=== PATIENT | female | born 1940 | race Caucasian/White ===

== ENCOUNTER 2017-05-20 09:57 | Inpatient (IN) | payer MEDICARE, OTHER ==
[~2017-05-20] VITALS: Ht 147.3 cm; Wt 64.4 kg
--- NOTE | 2017-05-20 10:10 | NUR ---
ROGELIO 89 FROM HOME FOR COUGH WITH CONGESTION X 1 WEEK. VSS. AWAITING FOR MD. SAFETY AND COMFORT MEASURES PROVIDED. WILL MONITOR.
--- NOTE | 2017-05-20 10:35 | NUR ---
AT [facility]
--- NOTE | 2017-05-20 10:50 | NUR ---
IV ACCESS STARTED. BLOOD DRAWN FOR LABS. PT MEDICATED ORDERED.
[2017-05-20 10:52] LABS: BASOPHILS # (AUTO) 0.2 /CMM (0.0-0.2); BASOPHILS % (AUTO) 1.5 % (0.0-2.0); EOSINOPHILS % (AUTO) 0.4 % (0.0-6.0); HEMATOCRIT 42 % (33-45); HEMOGLOBIN 14.1 g/dL (11.5-14.8); LYMPHOCYTES # (AUTO) 0.7 /CMM (0.8-4.8); LYMPHOCYTES % (AUTO) 6.1 % (20.0-44.0); MEAN CORPUSCULAR HEMOGLOBIN 31 PG (26.0-33.0); MEAN CORPUSCULAR HGB CONC 34 g/dl (31.0-36.0); MEAN CORPUSCULAR VOLUME 91 fL (82-100); MONOCYTES # (AUTO) 0.3 /CMM (0.1-1.30); MONOCYTES % (AUTO) 2.5 % (2.0-12.0); NEUTROPHILS # (AUTO) 10.9 /CMM (1.8-8.9); NEUTROPHILS % (AUTO) 89.5 % (43.0-81.0); PLATELET COUNT (AUTO) 173 /CMM (150-450); RDW COEFFICIENT OF VARIATION 13.2 (11.5-15.0); RED BLOOD CELL COUNT(AUTO) 4.61 MIL/uL (4.0-5.2); WHITE BLOOD COUNT (AUTO) 12.1 K/uL (4.3-11.0)
[2017-05-20 11:00] LABS: CALCIUM, SERUM 8.7 mg/dL (8.5-10.1); CARBON DIOXIDE 27 mmol/L (21-32); CHLORIDE 100 mmol/L (98-107); CREATININE 0.8 mg/dL (0.6-1.3); GLUCOSE 123 mg/dL (74-106); POTASSIUM 4.2 mmol/L (3.5-5.1); SODIUM SERUM 135 mmol/L (136-145); UREA NITROGEN, BLOOD 13 mg/dL (7-18)
--- NOTE | 2017-05-20 11:00 | NUR ---
RT AT BS FOR BREATHING TX.
[2017-05-20 11:13] LABS: ALANINE AMINOTRANSFERASE 36 U/L (12-78); ALBUMIN 3.6 g/dL (3.4-5.0); ALKALINE PHOSPHATASE 53 U/L (46-116); ASPARTATE AMINOTRANSFERASE 26 U/L (15-37); B-TYPE NATRIURETIC PEPTIDE 133 PG/ML (0-125); BILIRUBIN,DIRECT 0.1 mg/dL (0.0-0.2); BILIRUBIN,TOTAL 0.4 mg/dL (0.2-1.0); TOTAL PROTEIN, SERUM 6.8 g/dL (6.4-8.2)
--- NOTE | 2017-05-20 11:45 | NUR ---
[phone] DR BERNIE HOLGUIN.
--- NOTE | 2017-05-20 14:12 | NUR ---
COURTNEY CALLED ITS [facility]
[2017-05-20] MEDS ORDERED: IBUP200C5 PO (14:14)
[2017-05-20] MEDS ORDERED: ASPI81TA2 PO (14:14)
--- NOTE | 2017-05-20 15:29 | NUR ---
REPORT GIVEN TO ADRIENNE SEN FOR NOHEMY TELE [phone]
[2017-05-20 16:00] VITALS: BP 110/61
--- NOTE | 2017-05-20 16:30 | NUR ---
RESORT MANAGER NOTES RECEIVED PATIENT FROM ER. PT TRANSFERRED FROM [facility] TO BED. ROOM SET UP AND PATIENT ORIENTED. PT CONNECTED TO MONITOR NORMAL SINUS RHYTHM RATE 91. NO COMPLAINTS OF PAIN OR SOB. PT ON 2L 02 NASAL CANNULA. PT MADE AWARE THAT CALL CALL LIGHT WITHIN REACH.
--- NOTE | 2017-05-20 18:36 | NUR ---
REVENUE OFFICER CLOSING NOTES PATIENT CONTINUED MONITORING. NO SOB OR COMPLAINTS OF PAIN. PLAN OF CARE VERBALIZED TO PT. PT ON 2L O2. PATIENT SATING AT 94. REMINDED PT THAT CALL LIGHT IS WITHIN REACH.
[2017-05-20 20:00] VITALS: BP 116/64
--- NOTE | 2017-05-21 06:16 | NUR ---
pt alert, oriented ,ambulatory ,denies any pain, coughing dry, non productive, given x2 doses of tessalon naomi overnight, kept oxygen 2 liters with spo2 94%.slept well good 4 hrs after ambien, voiding ,no bm. will continue with steroid and antibiotics.vss,afebrile.
[2017-05-21 06:31] LABS: HEMATOCRIT 38 % (33-45); HEMOGLOBIN 12.7 g/dL (11.5-14.8); LYMPHOCYTES # (AUTO) 0.6 /CMM (0.8-4.8); LYMPHOCYTES % (AUTO) 3.4 % (20.0-44.0); MEAN CORPUSCULAR HEMOGLOBIN 31 PG (26.0-33.0); MEAN CORPUSCULAR HGB CONC 34 g/dl (31.0-36.0); MEAN CORPUSCULAR VOLUME 93 fL (82-100); MONOCYTES # (AUTO) 0.1 /CMM (0.1-1.30); MONOCYTES % (AUTO) 0.6 % (2.0-12.0); NEUTROPHILS # (AUTO) 15.8 /CMM (1.8-8.9); PLATELET COUNT (AUTO) 161 /CMM (150-450); RDW COEFFICIENT OF VARIATION 13.9 (11.5-15.0); RED BLOOD CELL COUNT(AUTO) 4.07 MIL/uL (4.0-5.2); WHITE BLOOD COUNT (AUTO) 16.5 K/uL (4.3-11.0)
[2017-05-21 06:36] LABS: CALCIUM, SERUM 8.5 mg/dL (8.5-10.1); CARBON DIOXIDE 22 mmol/L (21-32); CHLORIDE 105 mmol/L (98-107); CREATININE 0.8 mg/dL (0.6-1.3); GLUCOSE 161 mg/dL (74-106); MAGNESIUM 1.9 mg/dL (1.8-2.4); PHOSPHORUS 3.1 mg/dL (2.5-4.9); POTASSIUM 3.9 mmol/L (3.5-5.1); SODIUM SERUM 138 mmol/L (136-145); UREA NITROGEN, BLOOD 15 mg/dL (7-18)
--- NOTE | 2017-05-21 07:45 | NUR ---
MS/RN OPENING NOTE PATIENT RECEIVED IN BED IN STABLE CONDITION. ALERT AND ORIENTED TIMES 4. NO SIGNS OF ACUTE DISTRESS. NO COMPLAIN OF PAIN OR DISCOMFORT. ALL NEEDS ATTENDED TO. CALL LIGHT WITHIN REACH. WILL CONTINUE TO MONITOR TO ENSURE SAFETY.
[2017-05-21 08:00] VITALS: BP 116/64
--- NOTE | 2017-05-21 09:37 | NUR ---
MS/RN SEEN BY DR CHAPA PATIENT SEEN BY DR CHAPA WITH NO NEW ORDERS.
--- NOTE | 2017-05-21 18:40 | NUR ---
MS/RN CLOSING NOTE PATIENT IN BED IN STABLE CONDITION. A/O X 4. NO SINGS OF ACUTE DISTRESS. NO COMPLAIN OF PAIN OR DISCOMFORT. ALL NEEDS ATTENDED TO. CALL LIGHT WITHIN REACH. WILL ENDORSE TO NEXT SHIFT FOR CONTINUITY OF CARE.
--- NOTE | 2017-05-21 21:23 | NUR ---
MS/RN NOTES Patient on bed, alert et oriented. Respiration even et unlabored. Vital signs stable, Ambien 5 mg po given per request by patient. Fall precautions rendered. call light within reach. will continue to monitoe.
--- NOTE | 2017-05-21 22:39 | NUR ---
ms/rn notes patient complained of headache, medicated with tyklenol as needed. will cont. to monitor
--- NOTE | 2017-05-21 23:50 | NUR ---
ms/rn notes patient complained of cough, medicated with thesalon naomi as needed. will cont. to monitor
[2017-05-22 08:00] VITALS: BP 137/78
--- NOTE | 2017-05-22 08:00 | NUR ---
MS/RN AM NOTES PATIENT IN BED IN STABLE CONDITION. A/O X 4. NO SINGS OF ACUTE DISTRESS. NO COMPLAIN OF PAIN OR DISCOMFORT. ALL NEEDS ATTENDED TO. CALL LIGHT WITHIN REACH.
[2017-05-22] MEDS ORDERED: LEVO500T15 PO (13:32)
[2017-05-22] MEDS ORDERED: PRED50TA PO (13:32)
--- NOTE | 2017-05-22 14:44 | NUR ---
DISCHARGED INSTRUCTIONS,MED RECONCILIATION,MED AND HEALTH TEACHING GIVEN TO THE PT.IV H/L TO RFA REMOVED WITHOUT BLEEDING NOTED AND PT TOLERATED WELL.DISCHARGED PT HOME WITH STABLE V/S AND PRESCRIPTIONS GIVEN.
== END 2017-05-22 14:45 | disposition home or self-care (01) | DRG 871 ==
LOC: ER 09:59 → TELE 15:12 → MED 20:44
PROVIDERS: ADMIT Internal Medicine; ATTEND Internal Medicine
DX: A41.9 Sepsis, unspecified organism (principal); J15.9 Unspecified bacterial pneumonia; J96.01 Acute respiratory failure with hypoxia; Z88.5 Allergy status to narcotic agent; M19.90 Unspecified osteoarthritis, unspecified site; R65.20 Severe sepsis without septic shock
CPT/HCPCS: 36415; 71010-TC; 80048-TC; 80076-TC; 83735-TC; 83880; 84100-TC; 85025-TC; 87040-TC; 87081-TC; 93307-TC; 94799-TC; A4606; J0456; J0696; J1100; J1650; J1940; J2405; J2920; J7030; J7050; J7060; Z7610